=== PATIENT | female | born 1980 | race African-American/Black ===

== ENCOUNTER 2016-08-04 01:30 | Emergency (ER) | payer BC ==
[~2016-08-04] VITALS: Ht 157.5 cm; Wt 120.2 kg
[~2016-08-04 01:30] MED LIST: ACETAMINOPHEN-1 EAC1 PO; AZITHROMYCIN 2250 MG PO; CYCLOBENZAPRINE5 MG PO; DIABETA PO; FLOVENT DISKUS50 MCG; PROAIR HFA8.5 GM
[2016-08-04] MEDS ORDERED: NAPROSYN500 MG PO (03:38)
[2016-08-04 04:00] VITALS: BP 124/70
== END 2016-08-04 04:18 | disposition home or self-care (01) ==
LOC: ER 01:30
DX: M25.561 Pain in right knee (principal); J45.909 Unspecified asthma, uncomplicated; E11.9 Type 2 diabetes mellitus without complications; F10.99 Alcohol use, unspecified with unspecified alcohol-induced disorder